=== PATIENT | female | born 1960 | race Caucasian/White ===

== ENCOUNTER → 2021-10-01 | Outpatient (CLI) | payer MEDICARE, OTHER ==
[~2021-10-01] MED LIST: AMLODIPINE BES2.5 MG PO; CATAPRES 0.1MG0.1 MG PO; CELEXA40 MG PO; COZAAR100 MG PO; FLEXERIL 10 MG10 MG PO; FLONASE 0.05% N16 GM; GABAPENTIN600 MG PO; GLUCOPHAGE1000 MG PO; IBUPROFEN600 MG PO; NEURONTIN600 MG PO; NORCO 5-325 TA1 EACH PO; PERCOCET 5/325 T1 EA PO; ROBAXIN-750750 MG PO; ROBAXIN500 MG PO; SINGULAIR10 MG PO; Voltaren Gel 1 % TOP; ZYLOPRIM 100 M100 MG PO
== END ==
LOC: US 14:06
DX: I73.9 Peripheral vascular disease, unspecified (principal); M79.606 Pain in leg, unspecified
CPT/HCPCS: 93925; 93970

== ENCOUNTER → 2021-10-11 | Outpatient (CLI) | payer MEDICARE, OTHER ==
[2021-10-11 12:52] LABS: HEMOGLOBIN 13.6 gm/dl (12.3-15.3); RED BLOOD COUNT 4.56 M/UL (4.00-5.10); WHITE BLOOD COUNT 8.6 K/UL (4.5-11.0)
[2021-10-11 13:33] LABS: BUN/CREATININE RATIO 26 (0-10)
[2021-10-12 11:14] LABS: CREATININE, URINE 133.5 mg/dL (Not Estab.)
== END ==
LOC: LAB 12:26
PROVIDERS: Nurse Practitioner Family
DX: I10 Essential (primary) hypertension (principal); E78.5 Hyperlipidemia, unspecified; E03.9 Hypothyroidism, unspecified; E11.9 Type 2 diabetes mellitus without complications; M54.9 Dorsalgia, unspecified; M47.812 Spondylosis without myelopathy or radiculopathy, cervical region
CPT/HCPCS: 36415; 72082; 80053; 80061; 82043; 82570; 83036; 84443; 85025